=== PATIENT | female | born 1975 | race Caucasian/White ===

== ENCOUNTER 2024-08-11 22:08 | Emergency (ER) | payer SELFPAY ==
[2024-08-11 22:14] VITALS: BP 112/80; PULSE 97; RESP 16; TEMP 36.6; O2SAT 98
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
== END 2024-08-11 22:26 ==
LOC: ER 22:47
PROVIDERS: Emergency Provider Student in an Organized Health Care Education/Training Program
DX: R05.9 Cough, unspecified (principal); F10.929 Alcohol use, unspecified with intoxication, unspecified
CPT/HCPCS: 99281; 99283

== ENCOUNTER 2024-08-26 17:46 | Emergency (ER) | payer SELFPAY ==
[2024-08-26 17:54] VITALS: BP 129/108; PULSE 78; RESP 15; TEMP 36.8; O2SAT 98
[2024-08-26 18:01] VITALS: O2SAT 98
[2024-08-26 18:03] VITALS: RESP 15
[2024-08-26 18:10] VITALS: PULSE 85; RESP 7; O2SAT 97
[2024-08-26 18:20] VITALS: BP 138/107; PULSE 79; PULSE 86; RESP 11; O2SAT 97
[2024-08-26 18:21] VITALS: PULSE 86; RESP 14; O2SAT 96
[2024-08-26] MEDS: Cefpodoxime 200 MG TAB PO (18:26)
--- NOTE | 2024-08-26 21:41 | W.ED.GENAD ---
Discharge Plan Disposition Patient Disposition: Home Condition: Stable Discharge Details Clinical Impression: Alcohol intoxication, UTI (urinary tract infection) Primary Care Provider: Unknown,Unknown ED Provider: Winnie Kirkland Home Meds and New Rx's Prescriptions: New cefpodoxime 200 mg tablet 200 mg PO BID Qty: 6 0RF Rx Instructions: must administer with a meal/food Discharge Instructions Instructions: Urinary Tract Infection, Adult ED, Alcohol Intoxication ED Additional Instructions: medically cleared for incarceration HPI General Date/Time Provider Initiated Documentation: 08/26/24 17:53. HPI Narrative: 48-year-old presents with report of requiring medical clearance for incarceration. States that she is having some dysuria and was diagnosed with a urinary tract infection at [facility] today. She states that she was called and told that her urine culture was positive and started on an antibiotic. She had not filled the prescription. I reviewed her micro and she is sensitive to cefpodoxime so I will place her on the cefpodoxime and clear her for incarceration for detox as she is acutely intoxicated. She is alert and oriented on my assessment and in custody of the police. There is no visible sign of trauma, patient's vitals are stable. Return precautions reviewed and patient expressed understanding. Related Data Home Medications ?Medication ?Instructions ?Recorded ?Confirmed cefpodoxime 200 mg tablet 200 mg PO BID #6 tabs 08/26/24 Previous Rx's ?Medication ?Instructions ?Recorded cefpodoxime 200 mg tablet 200 mg PO BID #6 tabs 08/26/24 Allergies Allergy/AdvReac Type Severity Reaction Status Date / Time latex Allergy Mild rash Unverified 08/26/24 18:06 General Stated Complaint: OD/Poison THONG: 2 Exam Narrative Exam Narrative: Alert, oriented, no acute distress, pupils equal round reactive to light and accommodation, lungs clear to auscultation, cardiac rate rhythm regular, ambulatory with steady gait, no visible sign of trauma Course Vital Signs Vital signs: Vital Signs Temperature 36.8 C 08/26/24 17:54 Pulse 78 08/26/24 17:54 Respiratory Rate 15 08/26/24 17:54 Blood Pressure 129/108 H 08/26/24 17:54 Pulse Oximetry 98 08/26/24 17:54 Temperature 36.8 C 08/26/24 17:54 Temperature Source Oral 08/26/24 17:54 Pulse 79 08/26/24 18:20 Pulse 86 08/26/24 18:21 Respiratory Rate 14 08/26/24 18:21 Respiratory Effort Normal 08/26/24 18:03 Respiratory Depth Normal 08/26/24 18:03 Respiratory Pattern Normal 08/26/24 18:03 Blood Pressure 138/107 H 08/26/24 18:20 Blood Pressure Mean 111 08/26/24 18:20 Blood Pressure Position Sitting 08/26/24 17:54 Pulse Oximetry 96 08/26/24 18:21 Oxygen Delivery Method Room Air 08/26/24 17:54 Oxygen Flow Rate 0 08/26/24 17:54 Medical Decision Making 48-year-old female presenting for medical clearance for incarceration for acute alcohol intoxication. Patient does see she is supposed to be taking an antibiotic for urinary tract infection that was confirmed today after her visit at [facility] several days ago. I did place patient after on cefpodoxime after reviewing her allergy list and her sensitivities from [facility] she received her first dose in the emergency department. At this time she is medically cleared for incarceration. Return precautions reviewed and discharged in custody of police. Quality:[facility] Health Related Social Needs: No Data to Display PFSH All Active Problems (Updated 08/26/24 @ 18:19 by NANCY Ulloa) UTI (urinary tract infection) (Acute) Cough (Acute) Alcohol intoxication (Acute) Social History Smoking risk assessment performed?: No PAWSS Have you Been Recently Intoxicated or Drunk Within the Last 30 days?: No Have you Ever Experienced Previous Episodes of Alcohol Withdrawal?: No Have you ever Experienced Withdrawal Seizures?: No Have you ever Experienced Delirium Tremens(DT)s?: No Have you ever undergone Alcohol Rehabilitation Treatment (i.e, inpt ot outpatient treatment programs)?: Yes Have you ever Experienced Blackouts?: Yes Have you ever Combined Alcohol with other Downers within the last 90 days?: No Have you ever Combined Alcohol with any other Substance of Abuse during the last 90 days?: No Evidence of Increased Autonomic Activity (i.e. HR>120, tremor, sweating, agitation, nausea)?: No Result: 2
== END 2024-08-26 18:28 | disposition home or self-care (01) ==
LOC: ER 18:30
PROVIDERS: Emergency Provider Physician Assistant
DX: F10.929 Alcohol use, unspecified with intoxication, unspecified; N39.0 Urinary tract infection, site not specified; Z91.040 Latex allergy status
CPT/HCPCS: 99283

== ENCOUNTER 2024-08-27 05:05 | Emergency (ER) | payer SELFPAY ==
[2024-08-27 05:03] VITALS: BP 153/98; PULSE 98; RESP 18; TEMP 36.8; O2SAT 100
--- NOTE | 2024-08-27 05:06 | ED.GENADUL_ITS ---
Discharge Plan Disposition Patient Disposition: Home Condition: Good Discharge Details Clinical Impression: Nausea and vomiting Primary Care Provider: Unknown,Unknown ED Provider: Ivan Smith and New Rx's Prescriptions: No Action cefpodoxime 200 mg tablet 200 mg PO BID Qty: 6 0RF Rx Instructions: must administer with a meal/food Discharge Instructions Instructions: Nausea and Vomiting, Adult ED Additional Instructions: Given your period of prolonged sobriety it is highly recommended that you avoid alcohol. You have been given 3 doses of ondansetron for recurrent nausea vomiting. Would rest and hydrate today. Follow-up with your primary care as well as your mental health providers. Return to ED for any chest pain, syncope, abdominal pain, thoughts of self-harm, other concerns. HPI General Mode of arrival: EMS . Date/Time Provider Initiated Documentation: 08/27/24 05:06 . Limitations to Documentation: no limitations . Information obtained by: patient and RN notes reviewed . HPI Narrative: Patient presents to ED by ambulance after being released from protective custody for alcohol intoxication and walking to [place] where she presented to the police department. She started to feel nauseated and vomited a couple times. She did not take her nightly medication which includes propranolol for blood pressure and tachycardia. She has been feeling anxious and having palpitations. She was just seen here last night when she was cleared for protective custody. She reports being sober for many years until recent because of family issues has begun drinking again. Currently denies any thoughts of self-harm. Denies any abdominal pain. Is requesting a phone so that she may ca ll a neighbor to pick her up later this morning. She lives down in the [facility]. Related Data Home Medications ?Medication ?Instructions ?Recorded ?Confirmed cefpodoxime 200 mg tablet 200 mg PO BID #6 tabs 08/26/24 08/27/24 Previous Rx's ?Medication ?Instructions ?Recorded cefpodoxime 200 mg tablet 200 mg PO BID #6 tabs 08/26/24 Allergies Allergy/AdvReac Type Severity Reaction Status Date / Time latex Allergy Mild rash Unverified 08/27/24 05:07 General THONG: 2 Review of Systems Narrative: Per HPI Exam Narrative Exam Narrative: Const: Thin female in NAD. VS per triage. HEENT: NC/AT. Normal facial exam. Neck: Supple. Trachea midline. Lungs: Normal respiratory effort. Lungs are clear. Cor: RRR without murmur. Good radial pulses. GI: Soft/ND/NT. Neuro: A+O x 3. Normal speech, mentation. Cranial nerves II - XII grossly intact. No gross motor or sensory deficit. Ext: No C/C/E. Medical Decision Making Patient presenting to ED by ambulance after being released from protective custody overnight. She lives in [facility] and has no ride until later this morning. Has nausea and did receive ondansetron ODT from EMS. Heart is regular rate and rhythm with good pulse. Denies any current SI. Would like to give her her morning propranolol as she missed her nighttime dose. She unfortunately is not sure of the dosing. Will attempt to determine her dose. Still feels a little nauseated. Abdomen is benign. Able to confirm with [facility] that patient's propranolol dosing is 80 mg 3 times daily. She has provided her morning dose. She is given ondansetron to go bottle for recurrent nausea vomiting at home. She is encouraged to discontinue drinking. She has to follow-up with primary care as well as her mental health providers. Return precautions provided. [facility] All Active Problems (Updated 08/27/24 @ 05:56 by Ivan Smith MD) Nausea and vomiting (Acute) UTI (urinary tract infection) (Acute) Cough (Acute) Alcohol intoxication (Acute) Medical History Tachycardia Depression Anxiety Hypercholesterolemia HTN (hypertension) Surgical History S/P bunionectomy S/P tympanoplasty Social History Smoking/Tobacco Use Status: Never Smoking risk assessment performed?: Yes Alcohol Intake: current Alcohol Intake frequency: 3 or more drinks per day Substance use type: does not use
--- NOTE | 2024-08-27 05:59 | TELEP.MEDR_ITS ---
Date of service: 08/27/24 Time of Service: 05:59 [facility] Allergies Allergies: latex Allergy (Mild, Unverified 08/27/24 05:07) rash Interview Person Interviewed: * Medications were reviewed through chart from visits at [facility], Patient is unable to provide detailed information. Quality Quality of Interview/Accuracy of Medication List: Poor Sources Sources used to compile medication list: [employer] Medication List, Juan farooq nd Other ([facility]) Changes made to Home Medication List: ADDITIONS: * Propanolol 80mg Po TID * KCL 20 mEq PO TID * Disulfiram 250mg PO daily * Linzess 290mg PO daily * Bupropion XL 300mg PO daily * Abilify 2mg PO daily * Gabapentin 300mg PO HS * Prozac 40mg PO daily DELETIONS: * none CHANGES: * none Additional Notes Additional Notes: * none Recommended Changes Recommended Changes(reason for recommendation): * none Attestation: The home medication list is now updated to the best of my knowledge and is ready to be reconciled by the provider. Please contact the [facility] Medication Reconciliation Pharmacist at for any questions.
--- NOTE | 2024-08-27 05:59 | TELEP.MEDREC ---
Date of service: 08/27/24 Time of Service: 05:59 [facility] Home Med Rec Allergies Allergies: latex Allergy (Mild, Unverified 08/27/24 05:07) rash Interview Person Interviewed: Medications were reviewed through chart from visits at [facility], Patient is unable to provide detailed information. Quality Quality of Interview/Accuracy of Medication List: Poor Sources Sources used to compile medication list: [email or web address] Medication List, [employer] and Other ([facility] charts) Changes made to Home Medication List: ADDITIONS: Propanolol 80mg Po TID KCL 20 mEq PO TID Disulfiram 250mg PO daily Linzess 290mg PO daily Bupropion XL 300mg PO daily Abilify 2mg PO daily Gabapentin 300mg PO HS Prozac 40mg PO daily DELETIONS: none CHANGES: none Additional Notes Additional Notes: none Recommended Changes Recommended Changes(reason for recommendation): none Attestation: The home medication list is now updated to the best of my knowledge and is ready to be reconciled by the provider. Please contact the [facility] Medication Reconciliation Pharmacist at for any questions.
[2024-08-27] MEDS: Propranolol 40 MG TAB 80 MG PO (06:05)
[2024-08-27] MEDS: Ondansetron O.D.T. 4 MG TABEF, 3 TABS/BTL PO (06:05)
== END 2024-08-27 06:07 | disposition home or self-care (01) ==
PROVIDERS: Emergency Provider Emergency Medicine; PCP Internal Medicine
DX: R11.2 Nausea with vomiting, unspecified (principal)
CPT/HCPCS: 99283